=== PATIENT | female | born 1965 | race Caucasian/White ===

== ENCOUNTER 2018-11-29 10:23 | Outpatient (REF) | payer BC, SELFPAY ==
--- NOTE | 2018-11-29 10:00 | ENDOMET_PTH ---
PATIENT: Sherlyn Rasheed LOC: [facility] U#:[id number] AGE/SX: 53/F ROOM: RE11/29/[address]: Nancy Armstrong : 1965 BED: DIS: 11/29/2018 SPEC #: [id number] RECD: 11/29/18 20:49 STATUS: JOHNSON REQ #: [id number] ETHAN: 11/29/18 10:[address]: Nancy White DEPT: Surgical Specimen RECD BY: Luana Valle ENTERED: 11/29/18 20:50 SP TYPE: Endomet OTHR DR: Irma Prescott Tissues: 1 - ENDOMETRIUM BX/JEWEL Procedures: GROSS AND MICRO LEVEL 4 Comments: [id number]
== END 2018-11-29 10:43 ==
LOC: NCHCN 10:23
PROVIDERS: PCP Nurse Practitioner Family; Visit Provider Nurse Practitioner Family
DX: N93.8 Other specified abnormal uterine and vaginal bleeding (principal); N83.8 Other noninflammatory disorders of ovary, fallopian tube and broad ligament; N97.0 Female infertility associated with anovulation
CPT/HCPCS: 88305

== ENCOUNTER 2019-01-06 10:37 | Outpatient (REF) | payer BC, SELFPAY ==
[2019-01-06 19:28] LABS: Hemoglobin A1C 5.4 % (4.5-6.2)
[2019-01-06 19:30] LABS: Anion Gap 9.3 mmol/L (3-11); BUN 7 mg/dL (7-18); CO2 34.7 mmol/L (21.0-32.0); CREATININE 0.69 mg/dL (0.55-1.02); Calcium 9.4 mg/dL (8.5-10.1); Chloride 95 mmol/L (98-107); Cholesterol 216 mg/dL (50-200); Glucose 87 mg/dL (70-100); HDL Cholesterol 115 mg/dL (40-60); LDL CHOLESTEROL 74 mg/dL (<100); Potassium 3.8 mmol/L (3.5-5.1); Sodium 139 mmol/L (136-145); Triglyceride 51 mg/dL (30-150)
== END 2019-01-06 10:57 ==
LOC: NCHCN 10:37
PROVIDERS: PCP Nurse Practitioner Family; Visit Provider Nurse Practitioner Family
DX: I10 Essential (primary) hypertension (principal); N93.8 Other specified abnormal uterine and vaginal bleeding; Z13.220 Encounter for screening for lipoid disorders; Z13.1 Encounter for screening for diabetes mellitus
CPT/HCPCS: 80048; 80061; 83721; 83036

== ENCOUNTER 2020-04-11 14:33 | Outpatient (REF) | payer BC, SELFPAY | END 2020-04-11 14:53 | LOC: NCHCN 14:33 | PROVIDERS: PCP Nurse Practitioner Family; Visit Provider Nurse Practitioner Family | DX: N93.8 Other specified abnormal uterine and vaginal bleeding (principal) | CPT/HCPCS: 87086 ==

== ENCOUNTER 2020-04-29 09:53 | Outpatient (REF) | payer BC, SELFPAY ==
[2020-04-29 21:51] LABS: HCT 34.3 % (36.0-46.0); HGB 11.5 g/dL (11.2-15.7); MCH 33.3 pg (27.0-33.0); MCHC 33.5 % (32.0-36.0); MCV 99.4 fL (80-95); MPV 9.8 fL (8.0-11.0); Platelet Count 338 10^3/uL (130-400); RBC 3.45 10^6/uL (3.93-5.22); RDW 13.5 % (11.7-14.6); RDW-SD 49.3 fL; WBC 6.56 10^3/uL (4.4-10.8)
[2020-04-29 22:09] LABS: Hemoglobin A1C 5.3 % (<5.7)
[2020-04-29 22:21] LABS: Anion Gap 7.4 mmol/L (3-11); BUN 6 mg/dL (7-18); CO2 35.6 mmol/L (21.0-32.0); CREATININE 0.77 mg/dL (0.55-1.02); Calcium 8.8 mg/dL (8.5-10.1); Calculated LDL 103 mg/dL (<100); Chloride 96 mmol/L (98-107); Cholesterol 186 mg/dL (<200); Glucose 113 mg/dL (74-106); HDL Cholesterol 48 mg/dL (40-60); Sodium 139 mmol/L (136-145); Triglyceride 175 mg/dL (<150)
[2020-04-29 22:35] LABS: Potassium 2.5 mmol/L (3.5-5.1)
== END 2020-04-29 10:13 ==
LOC: NCHCN 09:53
PROVIDERS: PCP Nurse Practitioner Family; Visit Provider Nurse Practitioner Family
DX: I10 Essential (primary) hypertension (principal); I48.91 Unspecified atrial fibrillation; F41.8 Other specified anxiety disorders; R53.83 Other fatigue; Z13.1 Encounter for screening for diabetes mellitus; E66.01 Morbid (severe) obesity due to excess calories; M54.2 Cervicalgia
CPT/HCPCS: 80048; 80061; 85027; 83036

== ENCOUNTER 2020-05-03 14:24 | Outpatient (REF) | payer BC, SELFPAY ==
[2020-05-03 21:48] LABS: Potassium 2.8 mmol/L (3.5-5.1)
== END 2020-05-03 14:44 ==
LOC: NCHCN 14:24
PROVIDERS: PCP Nurse Practitioner Family; Visit Provider Nurse Practitioner Family
DX: E87.6 Hypokalemia (principal)
CPT/HCPCS: 84132

== ENCOUNTER 2020-05-06 21:23 | Outpatient (REF) | payer BC, SELFPAY ==
[2020-05-06 21:35] LABS: Anion Gap 10.3 mmol/L (3-11); CO2 29.7 mmol/L (21.0-32.0); Chloride 98 mmol/L (98-107); Potassium 3.3 mmol/L (3.5-5.1); Sodium 138 mmol/L (136-145)
== END 2020-05-06 21:43 ==
LOC: NCHCN 21:23
PROVIDERS: PCP Nurse Practitioner Family; Visit Provider Internal Medicine
DX: E87.6 Hypokalemia (principal)
CPT/HCPCS: 80051

== ENCOUNTER 2021-02-04 12:42 | Outpatient (REF) | payer BC, SELFPAY ==
[2021-02-04 14:28] LABS: HCT 31.2 % (36.0-46.0); HGB 9.6 g/dL (11.2-15.7); MCH 27.6 pg (27.0-33.0); MCHC 30.8 % (32.0-36.0); MCV 89.7 fL (80-95); MPV 10.3 fL (8.0-11.0); Platelet Count 415 10^3/uL (130-400); RBC 3.48 10^6/uL (3.93-5.22); RDW 18.1 % (11.7-14.6); RDW-SD 58.4 fL; WBC 7.69 10^3/uL (4.4-10.8)
[2021-02-04 14:57] LABS: Iron 66 ug/dL (50-170); Total Iron Binding Capacity 379 ug/dL (250-450); Transferrin Sat 17 % (15-50)
[2021-02-04 15:10] LABS: Anion Gap 11.7 mmol/L (3-11); BUN 4 mg/dL (7-18); CO2 25.3 mmol/L (21.0-32.0); CREATININE 0.8 mg/dL (0.55-1.02); Chloride 100 mmol/L (98-107); Ferritin 15 ng/mL (8-252); Glucose 100 mg/dL (74-106); Potassium 3.8 mmol/L (3.5-5.1); Sodium 137 mmol/L (136-145)
== END 2021-02-04 12:43 | disposition home or self-care (01) ==
LOC: NCHCN 12:42
PROVIDERS: Nurse Practitioner Family; PCP Nurse Practitioner Family; Visit Provider Nurse Practitioner Family
DX: K92.2 Gastrointestinal hemorrhage, unspecified (principal); Z86.2 Personal history of diseases of the blood and blood-forming organs and certain disorders involving the immune mechanism
CPT/HCPCS: 80048; 85027; 82728; 83540; 83550

== ENCOUNTER 2021-06-18 16:45 | Outpatient (REF) | payer BC, SELFPAY ==
[2021-06-18 22:13] LABS: HCT 39.8 % (36.0-46.0); HGB 13.2 g/dL (11.2-15.7); MCH 30.5 pg (27.0-33.0); MCHC 33.2 % (32.0-36.0); MCV 91.9 fL (80-95); MPV 10.3 fL (8.0-11.0); Platelet Count 332 10^3/uL (130-400); RBC 4.33 10^6/uL (3.93-5.22); RDW 16.1 % (11.7-14.6); RDW-SD 54.6 fL; WBC 7.75 10^3/uL (4.4-10.8)
[2021-06-18 22:23] LABS: Iron 41 ug/dL (50-170); Total Iron Binding Capacity 386 ug/dL (250-450); Transferrin Sat 11 % (15-50)
[2021-06-18 22:39] LABS: Ferritin 25 ng/mL (8-252)
== END 2021-06-18 16:46 | disposition home or self-care (01) ==
LOC: NCHCN 16:45
PROVIDERS: PCP Nurse Practitioner Family; Visit Provider Nurse Practitioner Family
DX: I10 Essential (primary) hypertension (principal); K92.2 Gastrointestinal hemorrhage, unspecified; I83.10 Varicose veins of unspecified lower extremity with inflammation; Z86.2 Personal history of diseases of the blood and blood-forming organs and certain disorders involving the immune mechanism; E66.01 Morbid (severe) obesity due to excess calories; R53.83 Other fatigue; E87.1 Hypo-osmolality and hyponatremia
CPT/HCPCS: 85027; 82728; 83540; 83550

== ENCOUNTER 2021-07-28 17:35 | Outpatient (REF) | payer BC, SELFPAY ==
[2021-07-28 16:24] LABS: Abs Immature Grans 0.07 10^3/uL (0.0-0.06); Absolute Basophil Count 0.03 10^3/uL (0.0-0.2); Absolute Eosinophil Count 0.37 10^3/uL (0.0-0.7); Absolute Lymphocyte Count 1.15 10^3/uL (1.2-3.4); Absolute Monocyte Count 0.64 10^3/uL (0.1-0.8); Absolute Neutrophil Count 7.83 10^3/uL (1.2-6.7); Basophils % 0.3; Eosinophils % 3.7; HGB 8.9 g/dL (11.2-15.7); Immature Grans % 0.7; Lymphocytes % 11.4; MCH 29.9 pg (27.0-33.0); MCV 90.6 fL (80-95); MPV 8.9 fL (8.0-11.0); Monocytes % 6.3; Neutrophils % 77.6; Nucleated RBC 0 %; Platelet Count 746 10^3/uL (130-400); RBC 2.98 10^6/uL (3.93-5.22); RDW 15.3 % (11.7-14.6); WBC 10.09 10^3/uL (4.4-10.8)
[2021-07-28 18:43] LABS: ALT 38 U/L (14-59); AST 66 U/L (15-37); Albumin 2.6 g/dL (3.4-5.0); Alkaline Phosphatase 50 U/L (46-116); Anion Gap 7.1 mmol/L (3-11); BUN 9 mg/dL (7-18); Bilirubin, Total 0.2 mg/dL (0.2-1.0); C-Reactive Protein 9.54 mg/dL (0.0-0.3); CO2 28.9 mmol/L (21.0-32.0); CREATININE 0.7 mg/dL (0.55-1.02); Calcium 8.9 mg/dL (8.5-10.1); Chloride 90 mmol/L (98-107); Glucose 106 mg/dL (74-106); Potassium 3.9 mmol/L (3.5-5.1); Sodium 126 mmol/L (136-145); Total Protein 6.8 g/dL (6.4-8.2)
[2021-07-28 19:02] LABS: Creatine Kinase 1082 U/L (26-192)
== END 2021-07-28 17:36 | disposition home or self-care (01) ==
LOC: LBN 17:35
PROVIDERS: PCP Nurse Practitioner Family
DX: M50.122 Cervical disc disorder at C5-C6 level with radiculopathy (principal); M46.22 Osteomyelitis of vertebra, cervical region; B95.62 Methicillin resistant Staphylococcus aureus infection as the cause of diseases classified elsewhere
CPT/HCPCS: 80053; 82550; 85025; 86140

== ENCOUNTER 2021-08-04 21:36 | Outpatient (REF) | payer BC, SELFPAY ==
[2021-08-04 22:15] LABS: Abs Immature Grans 0.03 10^3/uL (0.0-0.06); Absolute Basophil Count 0.05 10^3/uL (0.0-0.2); Absolute Eosinophil Count 0.24 10^3/uL (0.0-0.7); Absolute Lymphocyte Count 1.33 10^3/uL (1.2-3.4); Absolute Monocyte Count 0.55 10^3/uL (0.1-0.8); Absolute Neutrophil Count 5.46 10^3/uL (1.2-6.7); Basophils % 0.7; Eosinophils % 3.1; HCT 24.7 % (36.0-46.0); HGB 7.6 g/dL (11.2-15.7); Immature Grans % 0.4; Lymphocytes % 17.4; MCH 28.9 pg (27.0-33.0); MCHC 30.8 % (32.0-36.0); MCV 93.9 fL (80-95); MPV 9.2 fL (8.0-11.0); Monocytes % 7.2; Neutrophils % 71.2; Nucleated RBC 0 %; Platelet Count 573 10^3/uL (130-400); RBC 2.63 10^6/uL (3.93-5.22); RDW 15.9 % (11.7-14.6); RDW-SD 53.4 fL; WBC 7.66 10^3/uL (4.4-10.8)
[2021-08-04 22:26] LABS: ALT 18 U/L (14-59); AST 16 U/L (15-37); Albumin 2.7 g/dL (3.4-5.0); Alkaline Phosphatase 50 U/L (46-116); Anion Gap 6.1 mmol/L (3-11); BUN 6 mg/dL (7-18); Bilirubin, Total 0.2 mg/dL (0.2-1.0); CO2 29.9 mmol/L (21.0-32.0); CREATININE 0.7 mg/dL (0.55-1.02); Calcium 8.8 mg/dL (8.5-10.1); Chloride 99 mmol/L (98-107); Glucose 86 mg/dL (74-106); Potassium 4.3 mmol/L (3.5-5.1); Sodium 135 mmol/L (136-145); Total Protein 6.3 g/dL (6.4-8.2)
[2021-08-05 20:31] LABS: Creatine Kinase 75 U/L (26-192)
== END 2021-08-04 21:37 | disposition home or self-care (01) ==
LOC: LBN 21:36
PROVIDERS: PCP Nurse Practitioner Family; Visit Provider Nurse Practitioner Family
DX: M46.22 Osteomyelitis of vertebra, cervical region (principal); B95.62 Methicillin resistant Staphylococcus aureus infection as the cause of diseases classified elsewhere; Z79.2 Long term (current) use of antibiotics
CPT/HCPCS: 80053; 82550; 85025; 86140

== ENCOUNTER 2021-08-11 15:23 | Outpatient (REF) | payer BC, SELFPAY ==
[2021-08-11 17:52] LABS: Abs Immature Grans 0.02 10^3/uL (0.0-0.06); Absolute Basophil Count 0.04 10^3/uL (0.0-0.2); Absolute Eosinophil Count 0.41 10^3/uL (0.0-0.7); Absolute Monocyte Count 0.53 10^3/uL (0.1-0.8); Absolute Neutrophil Count 3.33 10^3/uL (1.2-6.7); Basophils % 0.7; Eosinophils % 7.4; HCT 28.4 % (36.0-46.0); HGB 9.1 g/dL (11.2-15.7); Immature Grans % 0.4; Lymphocytes % 21.7; MCH 29.8 pg (27.0-33.0); MCV 93.1 fL (80-95); MPV 9.2 fL (8.0-11.0); Monocytes % 9.6; Neutrophils % 60.2; Nucleated RBC 0 %; Platelet Count 481 10^3/uL (130-400); RBC 3.05 10^6/uL (3.93-5.22); RDW 16.4 % (11.7-14.6); RDW-SD 54.4 fL; WBC 5.53 10^3/uL (4.4-10.8)
[2021-08-11 18:05] LABS: ALT 19 U/L (14-59); AST 20 U/L (15-37); Alkaline Phosphatase 66 U/L (46-116); Anion Gap 6.3 mmol/L (3-11); BUN 8 mg/dL (7-18); Bilirubin, Total 0.3 mg/dL (0.2-1.0); C-Reactive Protein 3.03 mg/dL (0.0-0.3); CO2 29.7 mmol/L (21.0-32.0); CREATININE 0.9 mg/dL (0.55-1.02); Calcium 9.2 mg/dL (8.5-10.1); Chloride 100 mmol/L (98-107); Creatine Kinase 124 U/L (26-192); Glucose 86 mg/dL (74-106); Potassium 4.1 mmol/L (3.5-5.1); Sodium 136 mmol/L (136-145); Total Protein 6.8 g/dL (6.4-8.2)
== END 2021-08-11 15:24 | disposition home or self-care (01) ==
LOC: LBN 15:23
PROVIDERS: PCP Nurse Practitioner Family; Visit Provider Nurse Practitioner Family
DX: M46.22 Osteomyelitis of vertebra, cervical region (principal); Z79.2 Long term (current) use of antibiotics
CPT/HCPCS: 80053; 82550; 85025; 86140

== ENCOUNTER 2021-08-18 20:48 | Outpatient (REF) | payer BC, SELFPAY ==
[2021-08-18 21:36] LABS: C-Reactive Protein 3.48 mg/dL (0.0-0.3)
[2021-08-19 13:30] LABS: ALT 25 U/L (14-59); AST 33 U/L (15-37); Albumin 3.2 g/dL (3.4-5.0); Alkaline Phosphatase 68 U/L (46-116); Anion Gap 8.4 mmol/L (3-11); BUN 10 mg/dL (7-18); Bilirubin, Total 0.2 mg/dL (0.2-1.0); CO2 28.6 mmol/L (21.0-32.0); CREATININE 0.7 mg/dL (0.55-1.02); Chloride 101 mmol/L (98-107); Creatine Kinase 126 U/L (26-192); Glucose 111 mg/dL (74-106); Sodium 138 mmol/L (136-145); Total Protein 6.7 g/dL (6.4-8.2)
== END 2021-08-18 20:49 | disposition home or self-care (01) ==
LOC: LBN 20:48
PROVIDERS: PCP Nurse Practitioner Family; Visit Provider Nurse Practitioner Family
DX: B95.62 Methicillin resistant Staphylococcus aureus infection as the cause of diseases classified elsewhere (principal); M46.22 Osteomyelitis of vertebra, cervical region; Z79.2 Long term (current) use of antibiotics
CPT/HCPCS: 80053; 82550; 86140

== ENCOUNTER 2021-09-10 17:51 | Outpatient (REF) | payer BC, SELFPAY ==
[2021-09-10 20:39] LABS: HCT 33.6 % (36.0-46.0); HGB 10.7 g/dL (11.2-15.7); MCHC 31.8 % (32.0-36.0); MCV 94.1 fL (80-95); MPV 9.9 fL (8.0-11.0); Platelet Count 428 10^3/uL (130-400); RBC 3.57 10^6/uL (3.93-5.22); RDW 14.5 % (11.7-14.6); RDW-SD 48.5 fL; WBC 6.28 10^3/uL (4.4-10.8)
[2021-09-10 21:05] LABS: Anion Gap 11.1 mmol/L (3-11); BUN 11 mg/dL (7-18); CO2 26.9 mmol/L (21.0-32.0); Calcium 9.2 mg/dL (8.5-10.1); Chloride 99 mmol/L (98-107); Estimated GFR 56.95 (mL/min/1.73m2); Ferritin 34 ng/mL (8-252); Glucose 91 mg/dL (74-106); Potassium 3.6 mmol/L (3.5-5.1); Sodium 137 mmol/L (136-145)
== END 2021-09-10 17:52 | disposition home or self-care (01) ==
LOC: NCHCN 17:51
PROVIDERS: PCP Nurse Practitioner Family; Visit Provider Nurse Practitioner Family
DX: E87.1 Hypo-osmolality and hyponatremia (principal); I48.91 Unspecified atrial fibrillation; I10 Essential (primary) hypertension; Z86.2 Personal history of diseases of the blood and blood-forming organs and certain disorders involving the immune mechanism
CPT/HCPCS: 80048; 85027; 82728

== ENCOUNTER 2021-10-30 19:56 | Outpatient (REF) | payer BC, SELFPAY ==
[2021-10-30 14:41] LABS: HGB 11.5 g/dL (11.2-15.7)
== END 2021-10-30 19:57 | disposition home or self-care (01) ==
LOC: NCHCN 19:56
PROVIDERS: PCP Nurse Practitioner Family; Visit Provider Nurse Practitioner Family
DX: D50.9 Iron deficiency anemia, unspecified (principal)
CPT/HCPCS: 85018

== ENCOUNTER 2022-02-17 18:09 | Outpatient (REF) | payer BC, SELFPAY ==
[2022-02-17 21:05] LABS: Abs Immature Grans 0.01 10^3/uL (0.0-0.06); Absolute Basophil Count 0.04 10^3/uL (0.0-0.2); Absolute Eosinophil Count 0.18 10^3/uL (0.0-0.7); Absolute Lymphocyte Count 1.18 10^3/uL (1.2-3.4); Absolute Monocyte Count 0.47 10^3/uL (0.1-0.8); Absolute Neutrophil Count 4.09 10^3/uL (1.2-6.7); Basophils % 0.7; HCT 35.8 % (36.0-46.0); Immature Grans % 0.2; Lymphocytes % 19.8; MCH 29.9 pg (27.0-33.0); MCHC 33.5 % (32.0-36.0); MCV 89 fL (80-95); MPV 10.4 fL (8.0-11.0); Monocytes % 7.9; Neutrophils % 68.4; Platelet Count 315 10^3/uL (130-400); RBC 4.01 10^6/uL (3.93-5.22); RDW 14.4 % (11.7-14.6); RDW-SD 46.3 fL; WBC 5.97 10^3/uL (4.4-10.8)
[2022-02-17 21:18] LABS: Hemoglobin A1C 5.4 % (<5.7)
[2022-02-17 21:23] LABS: ALT 18 U/L (14-59); AST 14 U/L (15-37); Albumin 3.7 g/dL (3.4-5.0); Alkaline Phosphatase 73 U/L (46-116); Anion Gap 8.4 mmol/L (3-11); BUN 10 mg/dL (7-18); Bilirubin, Total 0.3 mg/dL (0.2-1.0); CO2 29.6 mmol/L (21.0-32.0); CREATININE 0.7 mg/dL (0.55-1.02); Calcium 9.4 mg/dL (8.5-10.1); Chloride 97 mmol/L (98-107); Glucose 87 mg/dL (74-106); Potassium 4.3 mmol/L (3.5-5.1); Sodium 135 mmol/L (136-145); Total Protein 6.9 g/dL (6.4-8.2)
== END 2022-02-17 18:10 | disposition home or self-care (01) ==
LOC: NCHCN 18:09
PROVIDERS: PCP Nurse Practitioner Family; Visit Provider Nurse Practitioner Family
DX: D50.9 Iron deficiency anemia, unspecified (principal); I10 Essential (primary) hypertension; I48.91 Unspecified atrial fibrillation; E66.01 Morbid (severe) obesity due to excess calories; R73.9 Hyperglycemia, unspecified; Z13.1 Encounter for screening for diabetes mellitus; Z01.818 Encounter for other preprocedural examination
CPT/HCPCS: 80053; 83036; 84443; 85025

== ENCOUNTER 2022-07-06 12:04 | Outpatient (REF) | payer BC, SELFPAY ==
[2022-07-06 14:50] LABS: HCT 37.2 % (36.0-46.0); HGB 12.3 g/dL (11.2-15.7); MCH 29.7 pg (27.0-33.0); MCHC 33.1 % (32.0-36.0); MCV 90 fL (80-95); MPV 10.3 fL (8.0-11.0); Platelet Count 318 10^3/uL (130-400); RBC 4.14 10^6/uL (3.93-5.22); RDW 13.2 % (11.7-14.6); RDW-SD 43.5 fL; WBC 5.16 10^3/uL (4.4-10.8)
[2022-07-06 15:34] LABS: ALT 17 U/L (14-59); AST 16 U/L (15-37); Albumin 3.7 g/dL (3.4-5.0); Alkaline Phosphatase 73 U/L (46-116); BUN 12 mg/dL (7-18); Bilirubin, Total 0.3 mg/dL (0.2-1.0); CREATININE 0.8 mg/dL (0.55-1.02); Calcium 9.7 mg/dL (8.5-10.1); Chloride 100 mmol/L (98-107); Estimated GFR 84.82 (mL/min/1.73m2); Ferritin 31 ng/mL (8-252); Glucose 92 mg/dL (74-106); Potassium 4.1 mmol/L (3.5-5.1); Sodium 137 mmol/L (136-145); TSH 1.18 uIU/mL (0.36-3.74); Total Protein 7.4 g/dL (6.4-8.2); Vitamin B12 442 pg/mL (193-986)
== END 2022-07-06 12:05 | disposition home or self-care (01) ==
LOC: NCHCN 12:04
PROVIDERS: PCP Nurse Practitioner Family; Visit Provider Nurse Practitioner Family
DX: I48.91 Unspecified atrial fibrillation (principal); G89.4 Chronic pain syndrome; M54.2 Cervicalgia; G47.00 Insomnia, unspecified; R25.1 Tremor, unspecified
CPT/HCPCS: 80053; 85027; 82607; 82728; 84443

== ENCOUNTER 2023-04-27 13:27 | Outpatient (REF) | payer BC, SELFPAY ==
[2023-04-27 17:12] LABS: HCT 38.5 % (36.0-46.0); HGB 12.1 g/dL (11.2-15.7); MCH 28.2 pg (27.0-33.0); MCHC 31.4 % (32.0-36.0); MCV 90 fL (80-95); MPV 10.3 fL (8.0-11.0); Platelet Count 339 10^3/uL (130-400); RBC 4.29 10^6/uL (3.93-5.22); RDW 14.5 % (11.7-14.6); WBC 7.07 10^3/uL (4.4-10.8)
[2023-04-27 17:25] LABS: Anion Gap 5.7 mmol/L (3-11); BUN 11 mg/dL (7-18); CO2 30.3 mmol/L (21.0-32.0); CREATININE 0.9 mg/dL (0.55-1.02); Calcium 9.6 mg/dL (8.5-10.1); Chloride 103 mmol/L (98-107); Estimated GFR 73.19 (mL/min/1.73m2); Ferritin 27 ng/mL (8-252); Glucose 90 mg/dL (74-106); Potassium 4.3 mmol/L (3.5-5.1); Sodium 139 mmol/L (136-145)
[2023-04-27 18:14] LABS: Hemoglobin A1C 5.4 % (<5.7)
== END 2023-04-27 13:28 | disposition home or self-care (01) ==
LOC: NCHCN 13:27
PROVIDERS: PCP Nurse Practitioner Family; Visit Provider Nurse Practitioner Family
DX: I10 Essential (primary) hypertension (principal); Z86.2 Personal history of diseases of the blood and blood-forming organs and certain disorders involving the immune mechanism; Z13.1 Encounter for screening for diabetes mellitus
CPT/HCPCS: 80048; 85027; 82728; 83036

== ENCOUNTER 2024-03-13 18:15 | Outpatient (REF) | payer BC, SELFPAY ==
[2024-03-13 21:26] LABS: HCT 40.6 % (36.0-46.0); HGB 13.1 g/dL (11.2-15.7); MCH 29.2 pg (27.0-33.0); MCHC 32.3 % (32.0-36.0); MCV 91 fL (80-95); MPV 9.8 fL (8.0-11.0); Platelet Count 336 10^3/uL (130-400); RBC 4.48 10^6/uL (3.93-5.22); RDW 13.7 % (11.7-14.6); RDW-SD 45.5 fL; WBC 7.94 10^3/uL (4.4-10.8)
[2024-03-13 21:28] LABS: ESR 24 mm/hr (0-30)
[2024-03-13 21:36] LABS: ALT 21 U/L (14-59); AST 18 U/L (15-37); Albumin 3.8 g/dL (3.4-5.0); Alkaline Phosphatase 70 U/L (46-116); Anion Gap 6.6 mmol/L (3-11); BUN 8 mg/dL (7-18); C-Reactive Protein 1.27 mg/dL (<or=0.5); CO2 32.4 mmol/L (21.0-32.0); CREATININE 0.9 mg/dL (0.55-1.02); Calcium 9.4 mg/dL (8.5-10.1); Chloride 104 mmol/L (98-107); Estimated GFR 72.73 (mL/min/1.73m2); Glucose 88 mg/dL (74-106); Potassium 4.1 mmol/L (3.5-5.1); Sodium 143 mmol/L (136-145); TSH 1.63 uIU/Ml (0.36-3.74); Total Protein 7.3 g/dL (6.4-8.2)
[2024-03-13 21:42] LABS: Hemoglobin A1C 5.3 % (<5.7)
[2024-03-13 22:28] LABS: Calculated LDL 146 mg/dL (<100); Cholesterol 230 mg/dL (<200); HDL Cholesterol 67 mg/dL (40-60); Triglyceride 86 mg/dL (<150); Vitamin B12 933 pg/mL (193-986)
== END 2024-03-13 18:16 | disposition home or self-care (01) ==
LOC: NCHCN 18:15
PROVIDERS: PCP Nurse Practitioner Family; Visit Provider Nurse Practitioner Family
DX: M79.642 Pain in left hand (principal); R41.3 Other amnesia; R79.82 Elevated C-reactive protein (CRP); R79.89 Other specified abnormal findings of blood chemistry; E66.01 Morbid (severe) obesity due to excess calories; Z86.2 Personal history of diseases of the blood and blood-forming organs and certain disorders involving the immune mechanism
CPT/HCPCS: 80053; 80061; 85027; 85652; 82607; 83036; 84443; 86140

== ENCOUNTER 2024-11-07 13:36 | Outpatient (REF) | payer BC, SELFPAY ==
[2024-11-07 22:04] LABS: HCT 41.2 % (36.0-46.0); HGB 13.4 g/dL (11.2-15.7); MCH 29.7 pg (27.0-33.0); MCHC 32.5 % (32.0-36.0); MCV 91 fL (80-95); MPV 10.1 fL (8.0-11.0); Platelet Count 300 10^3/uL (130-400); RBC 4.51 10^6/uL (3.93-5.22); RDW 13.9 % (11.7-14.6); RDW-SD 46.6 fL; WBC 5.18 10^3/uL (4.4-10.8)
[2024-11-07 22:17] LABS: Hemoglobin A1C 5.1 % (<5.7)
[2024-11-07 22:22] LABS: ALT 20 U/L (14-59); AST 24 U/L (15-37); Albumin 3.5 g/dL (3.4-5.0); Alkaline Phosphatase 70 U/L (46-116); Anion Gap 6.3 mmol/L (3-11); BUN 11 mg/dL (7-18); Bilirubin, Total 0.5 mg/dL (0.2-1.0); CO2 29.7 mmol/L (21.0-32.0); CREATININE 0.9 mg/dL (0.55-1.02); Calcium 9.3 mg/dL (8.5-10.1); Calculated LDL 140 mg/dL (<100); Chloride 106 mmol/L (98-107); Cholesterol 219 mg/dL (<200); Estimated GFR 72.73 (mL/min/1.73m2); Glucose 84 mg/dL (74-106); HDL Cholesterol 62 mg/dL (>or=50); Potassium 4.1 mmol/L (3.5-5.1); Sodium 142 mmol/L (136-145); TSH 0.66 uIU/mL (0.36-3.74); Triglyceride 89 mg/dL (<150)
== END 2024-11-07 13:37 | disposition home or self-care (01) ==
LOC: NCHCN 13:36
PROVIDERS: PCP Nurse Practitioner Family; Visit Provider Nurse Practitioner Family
DX: I10 Essential (primary) hypertension (principal); R53.83 Other fatigue; Z13.1 Encounter for screening for diabetes mellitus
CPT/HCPCS: 80053; 80061; 85027; 83036; 84443